=== PATIENT | male | born 1950 | race African-American/Black ===

== ENCOUNTER 2023-06-07 08:35 | Day surgery (SDC) | payer MEDICARE, OTHER ==
[~2023-06-07] VITALS: Ht 175.3 cm; Wt 74.8 kg
[~2023-06-07 08:35] MED LIST: LISINOPRIL10 MG PO; METFORMIN1000 MG PO; METFORMIN500 MG PO; OXYCODONE5 M1 PO; RANITIDINE150 MG PO; UROXATRAL10 MG PO; VITAMIN D32000 IU PO; ZOCOR40 MG PO
[2023-06-07] MEDS ORDERED: RYTARY1 CE2 PO (09:46)
[2023-06-07] MEDS ORDERED: EXELON 1.5MG1.5 MG PO (09:47)
[2023-06-07] MEDS ORDERED: MOTRIN 400400 MG/TAB PO (09:48)
[2023-06-07] MEDS ORDERED: TYLENOL 325MG325 MG PO (09:48)
[2023-06-07] MEDS ORDERED: PROTONIX 40MG T40 MG PO (09:49)
[2023-06-07] MEDS ORDERED: FLOMAX 0.40.4 MG/CAP PO (09:49)
[2023-06-07] MEDS ORDERED: PROSCAR 5MG5 MG PO (09:50)
--- NOTE | 2023-06-07 09:59 | NUR ---
Pt arrived in personal wheelchair, at side; VSS, reviewed meds/allergies/history; bowels are WNL for the procedure; reviewed and signed consents, no questions; to await procedure.
[2023-06-07 10:03] VITALS: BP 180/95; PULSE 79; TEMP 97
[2023-06-07 11:24] VITALS: BP 176/96; PULSE 82; TEMP 97.2
[2023-06-07 11:39] VITALS: BP 172/90; PULSE 82
[2023-06-07 11:54] VITALS: BP 170/92; PULSE 84
--- NOTE | 2023-06-07 12:15 | NUR ---
1124 RETURNS TO ROOM 4 PER CART. AWAKE, ALERT. RESP UNLABORED. HOB ELEVATED 40 DEGREES. DENIES NAUSEA OR ABD PAIN. CALL LIGHT AT SIDE. HERE 1135 AWAKE, CONVERSES APPROPRIATELY. TOLERATES PO JUICE WITHOUT NAUSEA 1140 DISCHARGE INSTRUCTIONS REVIEWED WITH PATIENT AND VERBALIZING UNDERSTANDING. COPY PROVIDED IN DISCHARGE FOLDER 1145 DR SEN HERE TO VISIT WITH PATIENT 1200 PATIENT SITS ON EDGE OF CART AND DRESSED WITH SIGNIFICANT ASSISTANCE FROM AND THIS NURSE, THEN STAND TRANSFERS TO WHEELCHAIR
== END 2023-06-07 12:15 | disposition home or self-care (01) ==
LOC: SDCO 08:35
DX: K59.00 Constipation, unspecified (principal); Z86.010 Personal history of colon polyps
CPT/HCPCS: J2704; J7120

== ENCOUNTER → 2024-02-05 | Outpatient (CLI) | payer OTHER ==
[~2024-02-05] MED LIST changes: +EXELON 1.5MG1.5 MG PO; +FLOMAX 0.40.4 MG/CAP PO; +GLUCOPHAGE500 MG/TAB PO; +LINZESS145CAP PO; -METFORMIN500 MG PO; +MOTRIN 400400 MG/TAB PO; +PROSCAR 5MG5 MG PO; +PROTONIX 40MG T40 MG PO; +RECTICARE5% RC; +RYTARY1 CE2 PO; +TYLENOL 325MG325 MG PO
== END ==
LOC: MHCPAIN 11:07
DX: M79.18 Myalgia, other site (principal); M25.511 Pain in right shoulder; M19.011 Primary osteoarthritis, right shoulder; G20.A1 Parkinson's disease without dyskinesia, without mention of fluctuations; M54.2 Cervicalgia; E11.9 Type 2 diabetes mellitus without complications; G89.29 Other chronic pain
CPT/HCPCS: G0463